=== PATIENT | male | born 1950 | race Caucasian/White ===

== ENCOUNTER 2017-03-04 10:53 | Observation (INO) | payer MEDICARE, BC ==
[~2017-03-04] VITALS: Ht 177.8 cm; Wt 91.7 kg
--- NOTE | ~2017-03-04 | OR ---
PATIENT'S NAME: EHSAN ELI [facility] AGE: 67 Y [address] ROOM: [address] [address] [facility] ADMIT DATE: 03/04/2017 OR/Procedure Report DISCHARGE DATE: FAMILY PHYSICIAN: PHYSICIAN, NO ATTENDING PHYSICIAN: ARCENIO THORNE SURGEON: Arcenio Thorne MD DATE OF PROCEDURE: 03/04/2017 PROCEDURE HYDRO STATION OPERATOR: Demetra Bundy. PROCEDURE NAME: Bronchoscopy with endobronchial ultrasound and fine-needle aspiration of right hilar lymph nodes. INDICATIONS AND PREPROCEDURE DIAGNOSES: 1. Mediastinal adenopathy with multiple nodes in the right hilar area. 2. Squamous cell carcinoma of the oropharynx. 3. Partial upper airway obstruction. POSTPROCEDURE DIAGNOSES: 1. Mediastinal adenopathy with multiple nodes in the right hilar area. 2. Squamous cell carcinoma of the oropharynx. 3. Partial upper airway obstruction. CONSENT: Consent was obtained from the patient after all the indications, risks, benefits, and alternatives were explained at length. DESCRIPTION OF PROCEDURE: I had extensive discussions with the Anesthesia team prior to starting the procedure. The patient had a difficult airway and he was taken to the operating room where he was fiberoptically intubated by Dr. Ellison from the Anesthesia team. Please note that he could not be intubated with a Griffith blade or with the GlideScope. A #8.5 endotracheal tube was eventually placed and I started with the diagnostic bronchoscopy followed by bronchoscopy with endobronchial ultrasound. FINDINGS: The initial bronchoscopy showed a small amount of blood in the distal trachea and right mainstem bronchus with a small clot. This was most likely secondary to the intubation and the bleeding tumor at the base of the tongue. I performed a therapeutic aspiration of secretions and of the blood clots using saline aliquots at times. Afterwards, a careful examination down to the subsegmental level did not reveal any endobronchial lesions, old or new blood clots, or any active bleeding. The diagnostic bronchoscope was removed and the bronchoscope with endobronchial ultrasound was advanced through the endotracheal tube. The patient had 2 small nodes of less than 1.5 cm in diameter next to the right pulmonary artery and a 2.5 cm maximum diameter PATIENT'S NAME: EHSAN ELI [facility] AGE: 67 Y [address] ROOM: [address] [address] LOC[facility]: [facility] ADMIT DATE: 03/04/2017 OR/Procedure Report DISCHARGE DATE: FAMILY PHYSICIAN: PHYSICIAN, NO ATTENDING PHYSICIAN: ARCENIO THORNE lymph node next to the bronchus intermedius on the right side. I performed 5 fine-needle aspirates from each of these lymph nodes with US guidance. There was minimal amount of bleeding that stopped without any further interventions. At the end of the procedure, I repeated the diagnostic bronchoscopy that did not reveal any active bleeding either. The diagnostic bronchoscope was removed and the patient was returned to the Anesthesia team for further management. He was eventually successfully extubated and transferred to PACU. COMPLICATIONS: None related to bronchoscopy and fine-needle aspirates. ESTIMATED BLOOD LOSS: Approximately 10-15 mL related to the intubation and bleeding from the tumor. SPECIMENS: The fine-needle aspirates will be sent for cytology studies. MD SIXTO ARRIAGA/modl /[id number] d: 03/04/17 2325 t: 03/06/17 0934, OPERATIVE SUMMARY
--- NOTE | ~2017-03-04 | HP ---
PATIENT'S NAME: EHSAN ELI [facility] AGE: 67 Y [address] ROOM: [place] [address] LOCATION: [facility] ADMIT DATE: 03/04/2017 History & Physical DISCHARGE DATE: FAMILY PHYSICIAN: PHYSICIAN, NO ATTENDING PHYSICIAN: ARCENIO THORNE DATE OF SERVICE: HISTORY OF PRESENT ILLNESS: This is a 67-year-old male who came in for an outpatient bronchoscopy and EBUS for biopsy and also FNA of hilar adenopathy. The patient has recently been diagnosed with a mass at the base of the tongue, which was diagnosed in February this year. Diagnosis of the mass at the base of the tongue was done when the patient in May of last year had a sore throat which was followed by sticky sensation in his throat, which progressively got worsened in November with a voice change and ultimately a PET scan was done, which showed a mass at the base of the tongue. The patient also had a difficult airway during intubation and so a fiberoptic method had to be adapted during intubation, and the procedure was well tolerated without any intraoperative or postop complication, and the patient was successfully extubated without any complications. However, Dr. Thorne felt the patient should be admitted for observation given his difficult airway as well as some obstruction. Right now, the patient denies any pain except for some soreness in his throat. Denies chest pain. Denies shortness of breath. Denies any fever, abdominal pain, or diarrhea. REVIEW OF SYSTEMS: The 13 elements of review of systems were asked and as documented in the HPI. The others are negative. PAST MEDICAL HISTORY: None. Recent diagnosis of mass at the base of the tongue. SURGICAL HISTORY: None. FAMILY HISTORY: Mother at the age of 92, had dementia. Father at the age of 60, he had multiple medical problems. SOCIAL HISTORY: The patient denies drinking alcohol or smoking. PHYSICAL EXAMINATION: VITAL SIGNS: In PCU, blood pressure 137/77, oxygen saturation 99% on 2 L of PATIENT'S NAME: EHSAN ELI [facility] AGE: 67 Y [address] ROOM: [place] [address] LOCATION: [facility] ADMIT DATE: 03/04/2017 History & Physical DISCHARGE DATE: FAMILY PHYSICIAN: PHYSICIAN, NO ATTENDING PHYSICIAN: ARCENIO THORNE nasal cannula, pulse 74, temperature 97.8, and respiratory rate 16. GENERAL: A pleasant male who is alert, awake, oriented x3, not in any form of respiratory distress or painful distress. NEUROLOGIC: Cranial 2-12 intact bilaterally. Sensory is intact bilaterally. Power is 5/5 in all extremities. HEENT: Normocephalic, atraumatic. Pupils are equal and reactive to light bilaterally. Pharynx is normal. Mucosa is moist. Ears: No obvious ear discharge or drainage. NECK: Supple. No area of tenderness. CARDIOVASCULAR: Normal S1, S2. Regular rate and rhythm. CHEST: Clear to auscultation bilaterally. ABDOMEN: Soft, nondistended. No area of tenderness. No palpable organomegaly. Positive bowel sounds. EXTREMITIES: There is no joint swelling or erythema or tenderness. SKIN: No rash or skin breakdown. ASSESSMENT AND PLAN: 1. Difficult airway for intubation, present on admission. The patient is status post difficult extubation, probably secondary to partial upper airway obstruction from the mass at the base of the tongue. 2. Acute hypoxic respiratory failure from partial airway obstruction. The patient is currently on 2 L of nasal cannula. We will wean him off oxygen. Further management is by Dr. Thorne which includes racemic epinephrine and DuoNeb p.r.n. Plan also if during the night the patient develops any worsening of shortness of breath for Anesthesia to be called and ENT also on standby Dr. Diez, and Dr. Thorne already touched base with him. 3. Mass at the base of the tongue, present on admission. The patient is status post EBUS and bronchoscopy with biopsy of the hilar adenopathy. The line of management was explained to the patient and his son who did not have any questions at this time. MD MARTINA AVENDANO/ramon /[id number] D: [id number] T: [id number] HISTORY & PHYSICAL
--- NOTE | ~2017-03-04 | OR ---
PATIENT'S NAME: EHSAN ELI [facility] AGE: 67 Y [address] ROOM: [address] [address] LOCATION: [facility] ADMIT DATE: 03/04/2017 OR/Procedure Report DISCHARGE DATE: 03/05/2017 FAMILY PHYSICIAN: , MARIA LUISA ATTENDING PHYSICIAN: Chele Fortune SURGEON: Omar Ellison MD MEAT CARRIER: DATE OF PROCEDURE: 03/04/2017 ADDENDUM TO ANESTHESIA RECORD ADDENDUM: The patient is a 67-year-old male who was brought to the operating room to undergo general anesthesia in order to facilitate bronchoscopy with ultrasound- guided lymph node biopsy. The patient had a history of difficult airway secondary to a large supraglottic mass. The patient was slowly induced under general anesthesia using titrated doses of propofol, ketamine, and Versed. Please refer to the anesthesia record for the dosage administration. The patient was successfully induced using IV induction with maintenance of spontaneous ventilation. At that point, sevoflurane was added to the injection in a concentration of 5% to 7%. The patient was assisted with his ventilation for a period of 5 to 10 minutes at which point he was deemed "deep" enough to permit direct laryngoscopy. Using a #2 Griffith blade, the pharynx was visualized, and on further inspection, a large, friable, fungating mass was noted on the left. Identification of the vocal cords was not possible on the first exam. The tissue was noted to be extremely friable with hemorrhage easily occurring on contact with the laryngoscope blade. Several attempts were made with a #2 Griffith blade, but the vocal cords again were not identified. The patient was assisted with his ventilation using bag mask with high concentrations of sevoflurane. The mouth had to be suctioned on several occasions to remove the blood that resulted from the friable tumor tissue. A GlideScope was then introduced into the oropharynx, and again the mass well visualized, but the cords remained obscured. It was at this time that we decided to use a double technique of a GlideScope with a flexible fiberoptic bronchoscope. Using this technique, we were able to identify the vocal cords and were able to enter into the trachea with the bronchoscope. I attempted to thread the endotracheal tube over the bronchoscope and into the trachea, but met resistance and were unable to successfully place the endotracheal tube. Both the tube and the bronchoscope were removed, and assisted ventilation re- established. The ventilation was becoming somewhat more difficult, and at times, we had to use 2-handed mask application with assisted bag ventilation. On the next attempt with the GlideScope/bronchoscope, the cords were identified and the trachea entered. An 8.5 mm endotracheal tube was then, at PATIENT'S NAME: EHSAN ELI [facility] AGE: 67 Y [address] ROOM: [place] [address] LOC[facility]: [facility] ADMIT DATE: 03/04/2017 OR/Procedure Report DISCHARGE DATE: 03/05/2017 FAMILY PHYSICIAN: MARIA LUISA VILLAR ATTENDING PHYSICIAN: Chele Fortune this point, successfully cork-screwed into the trachea to a depth of 23 cm at the lip. The bronchoscope was then removed and the endotracheal tube hooked to the anesthesia circuit with a normal capnography pattern. The patient maintained oxygen saturations in the mid to upper 90s throughout the entire procedure. He did have hemodynamic variability which was somewhat smoothed out with the administration of fentanyl. For other details, please refer to the anesthesia record. MD GHULAM JUNIOR/ramon /[id number] d: 03/05/17 1623 t: 03/08/17 1554, OPERATIVE SUMMARY
--- NOTE | ~2017-03-04 | DS ---
PATIENT'S NAME: EHSAN ELI [facility] AGE: 67 Y [address] ROOM: [address] [address] LOCATION: [facility]U ADMIT DATE: 03/04/2017 Discharge Summary DISCHARGE DATE: 03/05/2017 FAMILY PHYSICIAN: PHYSICIAN, NO ATTENDING PHYSICIAN: Chele Thorne DISCHARGE DIAGNOSES: 1. Partial upper airway obstruction. 2. Squamous cell carcinoma of the oropharynx. 3. Mediastinal adenopathy, status post bronchoscopy with endobronchial ultrasound and fine-needle aspirations. 4. Acute respiratory failure after bronchoscopy. HOSPITAL COURSE: Please see the history and physical dictated by Dr. Ojeda yesterday. Briefly, the patient had a bronchoscopy with endobronchial ultrasound scheduled for yesterday for a newly diagnosed oropharynx cancer and positive mediastinal lymph nodes on recent PET scan. As part of the procedure, the patient had to be intubated. However, he had a partially obstructed upper airway because of his squamous cell carcinoma of the base of the tongue. The intubation was difficult and he had some bleeding associated with it. The procedure itself was uneventful, but after the procedure, the patient also required supplemental oxygen. Because of concern of further airway compromise and because of his acute respiratory failure requiring oxygen, it was decided that the patient stay in the hospital overnight for observation. Eventually, early in the night, his oxygen requirements decreased and he was weaned off of oxygen to room air. There were no other significant events that happened overnight. He received only one racemic epinephrine nebulization immediately post-procedure after extubation. On the morning of 03/05/2017, I examined the patient who reported only mild tenderness in his throat, which was present before. He was on room air without any signs of respiratory distress. He will be discharged home, and I will give him updates over the phone regarding the results of the cytology studies for the fine-needle aspiration that I performed yesterday. The patient verbalized understanding and agreed to the discharge and further plan of care. DISCHARGE MEDICATIONS: None. DISPOSITION: He will be discharged home. CONDITION AT DISCHARGE: Good. CHELE THORNE MD RFN/modl PATIENT'S NAME: EHSAN ELI [facility] AGE: 67 Y [address] ROOM: [address] [address] [facility] ADMIT DATE: 03/04/2017 Discharge Summary DISCHARGE DATE: 03/05/2017 FAMILY PHYSICIAN: MARIA LUISA VILLAR ATTENDING PHYSICIAN: Chele Thorne /[id number] d: 03/05/17 0716 t: 03/06/17 0939, DISCHARGE SUMMARY
--- NOTE | 2017-03-04 19:50 | NUR ---
Significant Event: Alert and oriented X 3. SBP 142. HR 76. O2 at 1 L nasal cannula. Mass at base of tongue. No active bleeding since procedure. Up with SBA. Regular diet. Pleasant and cooperative with caress Follow up: Observation, possible dismissal tomorrow.
--- NOTE | 2017-03-05 04:16 | NUR ---
Significant Event: A/O, VSS, weaned to RA, slept throughout night, no report from patient of trouble breathing/swallowing, minor sore throat but tolerable, independent in room Follow up: home today
--- NOTE | 2017-03-05 11:00 | NUR ---
Introduced myself and role of care management to pt. He is dressed ready to go home. I did give him the BURT and he did sign it and copy given to him, denies any other needs.
[2017-03-30] MEDS ORDERED: PROCHLORPERAZIN10 MG PO (14:57)
[2017-03-30] MEDS ORDERED: DIFLUCAN100 MG PO (14:58)
[2017-03-30] MEDS ORDERED: SF56 GM TOP (15:01)
[2017-03-30] MEDS ORDERED: DECADRON4 MG PO (15:04)
[2017-03-30] MEDS ORDERED: ZYPREXA10 MG PO (15:06)
[2017-04-09] MEDS ORDERED: LORTAB ELIXI15 ML/UD PO (11:35)
[2017-04-09] MEDS ORDERED: AUGMENTIN600 MG/5 M PO (11:36)
== END 2017-03-05 12:50 | disposition disaster alternative care site (69) ==
LOC: GEND 10:53 → GPCU 15:36
PROVIDERS: ADMIT Internal Medicine Critical Care Medicine
PROC: 07974ZX Drainage of Thorax Lymphatic, Percutaneous Endoscopic Approach, Diagnostic (ICD-10-PCS; principal; 2017-03-04)
PROC: 0B938ZX Drainage of Right Main Bronchus, Via Natural or Artificial Opening Endoscopic, Diagnostic (ICD-10-PCS; 2017-03-04)
DX: J98.8 Other specified respiratory disorders (principal); R59.0 Localized enlarged lymph nodes; J96.90 Respiratory failure, unspecified, unspecified whether with hypoxia or hypercapnia; E66.9 Obesity, unspecified; Z68.30 Body mass index [BMI] 30.0-30.9, adult; Z23 Encounter for immunization
CPT/HCPCS: G0009; G0378; J1100; J2405; J7030

== ENCOUNTER 2017-04-08 16:14 | Emergency (ER) | payer MEDICARE, BC ==
--- NOTE | ~2017-04-08 | ER ---
PATIENT'S NAME: EHSAN ELI [facility] AGE: 67 Y [address] ROOM: [place] [address] LOCATION: [facility] ADMIT DATE: 04/08/2017 ER/Outpatient Report DISCHARGE DATE: 04/08/2017 FAMILY PHYSICIAN: PHYSICIAN, NO ATTENDING PHYSICIAN: Yunier Black Time of Arrival: 1614 hours. Time of Evaluation: 1630 hours. CHIEF COMPLAINT: Vomiting blood. HISTORY OF PRESENT ILLNESS: The patient is a 67-year-old male, who presents to the emergency department today with a chief complaint of vomiting blood. The patient does have a history of orolaryngeal cancer at the posterior aspect of his tongue. He is undergoing chemotherapy and radiation. He reports he had episodes of vomiting earlier today and then had 1 episode of vomiting today with small amount of blood noted. He did have a fever prior which he was started on amoxicillin for. Denies any diarrhea or constipation. No back pain. No diarrhea. No chest pain. No shortness of breath. He has chronic pain in the back of his throat. PAST MEDICAL HISTORY: Mass at the base of the tongue. PAST SURGICAL HISTORY: Abdomen at 4 years old. SOCIAL HISTORY: The patient denies any tobacco, alcohol, or illicit drug use. ALLERGIES: NO KNOWN DRUG ALLERGIES. MEDICATIONS: Please see list. PRIMARY CARE DOCTOR: No local physician. REVIEW OF SYSTEMS: All systems are reviewed by myself and negative with the exception of those discussed in HPI and past medical history. PATIENT'S NAME: EHSAN ELI [facility] AGE: 67 Y [address] ROOM: [place] [address] LOCATION: [facility] ADMIT DATE: 04/08/2017 ER/Outpatient Report DISCHARGE DATE: 04/08/2017 FAMILY PHYSICIAN: PHYSICIAN, NO ATTENDING PHYSICIAN: Yunier Black PHYSICAL EXAMINATION: VITAL SIGNS: Weight 95 kg. Blood pressure 113/73, pulse 63, respiratory rate 20, temperature 97.3, oxygen saturation 96% on room air. GENERAL: The patient is a 67-year-old male, who appears his stated age, in no acute distress. HEENT: Head: Normocephalic, atraumatic. Pupils are equal, round, and reactive to light. Oropharynx is clear. NECK: Supple. There is no nuchal rigidity. CARDIOVASCULAR: Regular rate and rhythm. No murmurs, rubs, or gallops. LUNGS: Clear to auscultation bilaterally. No wheezes, rales, or rhonchi. ABDOMEN: Soft, nontender, and nondistended. No rebound, rigidity, or guarding. MUSCULOSKELETAL: The patient moves all 4 extremities. SKIN: Warm and dry. No rashes or lesions noted. LABORATORY DATA AND X-RAYS: Labs and x-rays are obtained. CBC: White blood cell count 1.2, ANC of 700, hemoglobin 9.7, hematocrit 28.9. Lactate is normal. CMP is unremarkable. LFTs are normal. Cardiac enzymes are normal. PTT is 36. INR is normal. Procalcitonin is less than 0.05. Chest x-ray shows no acute process as interpreted by myself. IMPRESSION: 1. Hematemesis. 2. Squamous cell carcinoma of the oropharynx. 3. Initial visit. EMERGENCY DEPARTMENT COURSE: The patient brought back to the examination room. Seen and evaluated by myself. IV was established. Laboratory analysis and imaging are obtained as described above. Workup is obtained. The patient is given 4 mg of Zofran IV. He does have 1 more episode of vomiting here in the emergency department. There was no blood noted in that. Old records are reviewed. The patient did have friable tissue back there along his mass previously. I have discussed with him certainly a friable tissue could be a cause of the blood. It was a small amount. He has vomited since and has not had any blood. I have discussed observation in the hospital for further evaluation of this and to make sure he does not have any complications throughout the night. The patient does wish to go home at this time. He certainly understands that the vomiting of blood could get worse. It could even potentially be life- threatening potentially. The patient's son is at the bedside. They are both understanding. Their questions were answered. They are without further PATIENT'S NAME: EHSAN ELI [facility] AGE: 67 Y [address] ROOM: [place], [place] [address] LOCATION: [facility] ADMIT DATE: 04/08/2017 ER/Outpatient Report DISCHARGE DATE: 04/08/2017 FAMILY PHYSICIAN: PHYSICIAN, NO ATTENDING PHYSICIAN: Yunier Black questions. I have discussed return to care instructions including worsening symptoms or any other concerns, return to the emergency department as soon as possible. The patient does get fluids every time he gets chemo and radiation. He is to follow up with his cement side laster oncologist in 1-2 days as scheduled. I did write a prescription for Zofran 4 mg ODT. DISPOSITION: The patient was discharged home in good condition. DO ANKIT MCKEON/sadel /[id number] d: 04/09/1735 t: 04/14/17 0914, OUTPATIENT REPORT
[~2017-04-08 16:14] MED LIST: DECADRON4 MG PO; DIFLUCAN100 MG PO; PROCHLORPERAZIN10 MG PO; SF56 GM TOP; ZYPREXA10 MG PO
[2017-04-08 17:10] LABS: HEMATOCRIT 28.9 % (37.0-53.0); HEMOGLOBIN 9.7 g/dL (11.0-16.0); MCH 29.4 pg (27.0-34.0); MCHC 33.6 gm/dL (32.0-36.5); MCV 87.6 fl (83.0-98.0); MPV 8.6 fl (9.4-12.4); PLATELET COUNT 241 K/uL (150-450); RDW-CV 12.6 % (11.9-14.6)
[2017-04-08 17:14] LABS: WBC 1.2 K/uL (4.0-11.0)
[2017-04-08 17:21] LABS: INR - (THERAPEUTIC) 1.05 (0.92-1.07); PTT 36 SECONDS (25-32)
[2017-04-08 17:37] LABS: ALBUMIN 3.1 gm/dL (3.5-5.0); ALK PHOS 76 IU/L (33-138); ALT 11 IU/L (12-78); ANION GAP 15.2 (10.0-19.0); AST 18 IU/L (10-40); BLOOD UREA NITROGEN 12 mg/dL (6-24); CALCIUM 8.1 mg/dL (8.5-10.5); CHLORIDE 103 mMol/L (96-110); CO2 23 mMol/L (22-32); CPK 52 IU/L (35-332); CREATININE 0.7 mg/dL (0.6-1.3); ESTIMATED GFR (MDRD EQUATION) > 60; POTASSIUM 4.2 mMol/L (3.7-5.1); SODIUM 137 mMol/L (135-145); TOTAL BILIRUBIN 0.3 mg/dL (0.0-1.5); TOTAL PROTEIN 6.4 g/dL (6.0-8.4)
[2017-04-08 18:02] LABS: ABSOLUTE NEUTROPHIL CT (ANC) 0.7 K/uL (1.4-9.0); BANDED NEUTROPHIL # 0.1 K/uL (0.0-0.1); BANDED NEUTROPHILS % 9 %; LYMPHOCYTE # 0.2 K/uL (0.8-4.0); LYMPHOCYTE % 17 %; MONOCYTE # 0.2 K/uL (0.0-1.0); SEGMENTED NEUTROPHIL # 0.6 K/uL (1.4-9.0); SEGMENTED NEUTROPHIL % 53 %
[2017-04-09] MEDS ORDERED: LORTAB ELIXI15 ML/UD PO (11:35)
[2017-04-09] MEDS ORDERED: AUGMENTIN600 MG/5 M PO (11:36)
== END 2017-04-08 18:20 | disposition disaster alternative care site (69) ==
LOC: GMED 16:14
PROVIDERS: Emergency Medicine
DX: K92.0 Hematemesis (principal); D00.08 Carcinoma in situ of pharynx
CPT/HCPCS: J2405

== ENCOUNTER → 2017-04-09 | Day surgery (SDC) | payer MEDICARE, BC ==
[~2017-04-09] MED LIST changes: +AUGMENTIN600 MG/5 M PO; +DURAGESIC 25MC25 MCG TOP; +LORTAB ELIXI15 ML/UD PO; +MAG119MX PO; +MOTRIN/ADV100 MG/5 M PO; +TYLENOL LI325 MG/10. PO; +ZOFRAN ODT 4 MG4 MG SL
== END | disposition disaster alternative care site (69) ==
LOC: GPOC 10:00 → GSDC 14:01 → EDSTATUS 04-10 10:00 → GSDC 04-10 10:00
DX: K92.0 Hematemesis (principal); Z85.21 Personal history of malignant neoplasm of larynx
CPT/HCPCS: C1713; C1729; C1769; C1887; J1100; J2405; J2765; J7030

== ENCOUNTER 2017-04-12 19:25 | Inpatient (IN) | payer MEDICARE, BC ==
[~2017-04-12] VITALS: Ht 177.8 cm; Wt 87.6 kg
--- NOTE | ~2017-04-12 | ER ---
PATIENT'S NAME: EHSAN ELI [facility] AGE: 67 Y [address] ROOM: [place] [address] [place] [facility] [place] DATE: 04/12/2017 ER/Outpatient Report DISCHARGE DATE: FAMILY PHYSICIAN: PHYSICIAN, NO ATTENDING PHYSICIAN: GABRIELA CHIN Time of Arrival: 1925 hours. Time of Evaluation: 1930 hours. IDENTIFICATION: A 67-year-old male. CHIEF COMPLAINT: Nausea and vomiting. HISTORY OF PRESENT ILLNESS: The patient is a 67-year-old male, diagnosed with a mass at the base of his tongue in February of this year. 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 Next chemotherapy visit is for next Thursday. He had a PEG tube placed on . He has continued to have worsening nausea, vomiting. He has only had 300 calories in since Thursday according to his son. The patient is not having any pain at this time. ALLERGIES: NO KNOWN DRUG ALLERGIES. CURRENT MEDICATIONS: 1. Lortab. 2. Tylenol. 3. Motrin. 4. Zofran. MEDICAL PROBLEMS: Moderately-differentiated squamous cell carcinoma of oropharynx. PRIOR SURGERIES: Intussusception of the intestines in 1953, laryngoscopy with biopsy on February 18, 2017, bronchoscopy with fine-needle aspirate in February 2017. SOCIAL HISTORY: The patient is . 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 He was living in [place], [place]. Occasional alcohol use in the past, none currently. Tobacco use, denies. PATIENT'S NAME: EHSAN ELI [facility] AGE: 67 Y [address] ROOM: [place] [id number] [place] [facility] [place] DATE: 04/12/2017 ER/Outpatient Report DISCHARGE DATE: FAMILY PHYSICIAN: PHYSICIAN, MARIA LUISA ATTENDING PHYSICIAN: GABRIELA CHIN FAMILY HISTORY: Father at age 60 from pancreatic cancer. Mother at age 92 from dementia. REVIEW OF SYSTEMS: The patient denies any fever or chills. Pain is controlled. He does have trouble speaking. No cough. No shortness of breath. No abdominal pain. He has nausea, vomiting, constipation. Last bowel movement was on Thursday. No diarrhea. No numbness or tingling. All other systems reviewed and negative. PHYSICAL EXAMINATION: VITAL SIGNS: Height 5 feet 10 inches, weight 91.9 kg, blood pressure 168/95, pulse 70, respirations 18, temperature 98.2, and saturations 96% on room air. GENERAL: A 67-year-old male, in mild distress. HEENT: Head: Normocephalic, atraumatic. Ears: TMs not visualized. Eyes: Pupils equal and reactive to light and accommodation. Extraocular movements intact. Nose: Mucosa pink. No lesions. Mouth: Mucous membranes are dry. Pharynx benign. NECK: Supple with palpable lymph nodes. LUNGS: Clear to auscultation. No rhonchi, wheezes, or rales. HEART: Regular rate and rhythm. No murmur, rub, or gallop. ABDOMEN: Bowel sounds present. Soft. Nondistended. Minimally tender to deep palpation. No rebound or guarding. PEG tube in place. EXTREMITIES: No edema. NEURO: The patient is alert and oriented x4. Cranial nerves 2 through 12 grossly intact. Motor strength 5/5 throughout. Sensation is intact to light touch. No lower extremity edema. LABORATORY DATA AND X-RAYS: Sodium 138; potassium 3.2, which is down from 4.2 on April 08; chloride 101; CO2 of 29; BUN 12; creatinine 0.7; blood sugar 93. Albumin 2.7, which is down from 3.1 on April 08. Liver enzymes normal. Amylase and lipase are normal. Hemoglobin 9.9, which is stable; hematocrit 29.6; platelets 271; white count 1.5, which is up from 1.2 on April 08; absolute neutrophil count is 1.0; 53% segs; 16% bands. IMPRESSION: 1. Intractable nausea and vomiting. 2. Squamous cell carcinoma of the oropharynx, undergoing radiation and chemotherapy. 3. Leukopenia, probably secondary to chemotherapy, absolute neutrophil count is 1000. 4. Hypokalemia. 5. Poor nutritional status with low albumin and poor p.o. intake with PATIENT'S NAME: EHSAN ELI [facility] AGE: 67 Y [address] ROOM: [place] [address] [place] [facility] [facility] [place] DATE: 04/12/2017 ER/Outpatient Report DISCHARGE DATE: FAMILY PHYSICIAN: MARIA LUISA VILLAR ATTENDING PHYSICIAN: GABRIELA CHIN persistent nausea and vomiting. PLAN: An IV was initiated here. Normal saline at 150 mL/h. Zofran for nausea. The patient will be admitted per hospitalist service, Dr. Chin, for observation. Family understands and agrees, and all questions have been answered. MD LINETTE SCHWARTZ/sadel /[id number] d: 04/13/17 0320 t: 04/13/17 0404, OUTPATIENT REPORT
--- NOTE | ~2017-04-12 | HP ---
PATIENT'S NAME: EHSAN ELI [facility] AGE: 67 Y [address] ROOM: [place] [address] [place] [facility] [place]: 04/12/2017 History & Physical DISCHARGE DATE: FAMILY PHYSICIAN: PHYSICIAN, MARIA LUISA ATTENDING PHYSICIAN: GABRIELA CHIN DATE OF SERVICE: CHIEF COMPLAINT: Nausea and vomiting. 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 The patient's last chemotherapy was March 30, 2017, and the next one will be on Thursday, April 15, 2017, and the patient's next radiation is due on Thursday, which is April 14, 2017. The story is that the patient also had a PEG tube placement for tube feeding every 3 hours at home. The patient says that 4 days after he had the first chemotherapy on March 30, 2017, the patient has been feeling nauseous and has been unable to tolerate anything orally. He has vomited a few times, but he denies any abdominal pain. He still passes flatus. He is constipated. Last bowel movement was a few days ago, but he says that he also has been unable to eat anything due to nausea and vomiting. Because of the worsening nausea and vomiting every time he tried to eat, the patient came here for evaluation. No fever, no chills, no shortness of breath, no chest pain, no palpitation, no cough, no abdominal pain. REVIEW OF SYSTEMS: As mentioned in the history of present illness. All other systems were reviewed and were negative except those mentioned in the history of present illness. PAST MEDICAL HISTORY: 1. Squamous cell carcinoma of the oropharynx diagnosed in January 2017, followed by Dr. Lam and currently on chemotherapy and also on radiation. 2. Status post PEG tube placement that was done on March, and he is getting tube feeding formula every 3 hours at home. ALLERGIES: NO KNOWN DRUG ALLERGIES ACCORDING TO THE PATIENT. PATIENT'S NAME: EHSAN ELI [facility] AGE: 67 Y [address] ROOM: [place] [address] [place] [facility] [place]: 04/12/2017 History & Physical DISCHARGE DATE: FAMILY PHYSICIAN: PHYSICIAN, MARIA LUISA ATTENDING PHYSICIAN: GABRIELA CHIN [place] MEDICATIONS: Will be reconciled in the morning when the list is ready. SOCIAL HISTORY: The patient denies any alcohol, illegal drug, or cigarette use. PAST SURGICAL HISTORY: None. FAMILY HISTORY: Father from pancreatic cancer. Mother from old age from a cause that he could not remember. PHYSICAL EXAMINATION: VITAL SIGNS: At the time of my dictation, temperature 97, heart rate 75, respirations 12, blood pressure 153/93, saturation 95% on room air. GENERAL APPEARANCE: Alert and oriented x3, in no acute distress. HEENT: Pupils are equally round and reactive to light. Extraocular muscles intact. Anicteric sclerae. Nasal turbinates are normal bilaterally. Moist oral mucosa. NECK: No JVD. In the oral cavity, he does have some stomatitis around his tongue. CARDIOVASCULAR: Regular rate and rhythm. Normal S1, S2. No murmur, no rubs, no gallops. RESPIRATORY: Clear to auscultation. Chest wall nontender to palpation. ABDOMEN: Soft, nontender, PEG tube in place. Nondistended, nontender. Bowel sounds are present. No mass. EXTREMITIES: No edema in upper or lower extremities. NEUROLOGICAL: Grossly nonfocal. SKIN: No ulcer, no rash, no cyanosis. MUSCULOSKELETAL: No joint pain and no muscle pain. Range of motion intact. LABORATORY DATA: White blood cells 1.5, hemoglobin 9.9, hematocrit 29.6, platelets 271. Glucose 93, BUN 12, creatinine 0.7. Sodium 138, potassium 3.2, chloride 101, CO2 29, calcium 8.6. Total protein 6.8, albumin 2.7, AST 15, ALT 13, alkaline phosphatase 66, total bilirubin 0.3, GFR more than 60. Anion gap 11.2. Procalcitonin pending. Amylase 41, lipase 112. Absolute neutrophil count 1.0. IMAGING STUDY: None. ASSESSMENT AND PLAN: 1. Regarding his intractable nausea and vomiting: Probably secondary to PATIENT'S NAME: EHSAN ELI [facility] AGE: 67 Y [address] ROOM: [place] [address] [place] [facility] [place]: 04/12/2017 History & Physical DISCHARGE DATE: FAMILY PHYSICIAN: PHYSICIAN, NO ATTENDING PHYSICIAN: GABRIELA CHIN chemotherapy side effect since his nausea and vomiting happened 4 days after the chemotherapy was started for the first time. However, I want to rule out a small bowel obstruction. I will get a KUB. Putting n.p.o. given that the patient is feeling nauseous right now. If KUB rule out small bowel obstruction, the patient could advance diet as tolerated. I will use IV Zofran p.r.n. for nausea and vomiting. I will also consult Hematology/Oncology to see if the chemotherapy agent could be the cause of the nausea and vomiting. The patient does not remember which chemotherapy agent patient was using. Please also consider consulting Dr. Coe for his radiation if it is appropriate to have the radiation on Friday, April 14, 2017, which is his next appointment. Followup plan will depend on clinical course. I will also consult Nutrition to assess the frequency and the type of the feeding formula, but has to rule out a small bowel obstruction with a KUB first. Further plan will depend be clinical course. While n.p.o., he will be getting IV fluids for hydration. 2. Regarding his hypokalemia: We will replace IV fluids that he is getting right now. 3. Regarding his squamous cell carcinoma of the oropharynx: We will consult Hematology/Oncology as mentioned before. 4. Regarding his deep vein thrombosis prophylaxis: He will be getting Lovenox subcutaneous once daily. 5. Code status: FULL CODE. Time spent on the day of admission is 35 minutes in care. Half of the time was spent in chart review, physical examination, and the medical history. The other half of the total time spent was in counseling including addressing all the questions and the concerns that the patient had and going over the plan of care with the patient and the nurse. Further plan will depend on clinical course. GABRIELA CHIN MD CC/ramon /[id number] D: 451 T: 710 HISTORY & PHYSICAL
--- NOTE | ~2017-04-12 | DS ---
PATIENT'S NAME: EHSAN ELI [facility] AGE: 67 Y [address] ROOM: [address] [address] [place] [facility] [place] DATE: 04/15/2017 Discharge Summary DISCHARGE DATE: 04/27/2017 FAMILY PHYSICIAN: MARIA LUISA VILLAR ATTENDING PHYSICIAN: Rio Godoy PRINCIPAL DIAGNOSES: 1. Intractable nausea and vomiting secondary to ileus. 2. Neutropenia. 3. Stomatitis/mucositis. 4. Dysphagia secondary to squamous cell carcinoma of the oropharynx and base of the tongue, status post PEG tube. 5. Squamous cell carcinoma of the oropharynx, stage IV. 6. Constipation, narcotic induced. 7. Protein-calorie malnutrition. 8. Fever, unknown origin. 9. Hypokalemia. 10. Hypomagnesemia. HOSPITAL COURSE: Please reference any of the admitting data to the history and physical as dictated by Dr. Godoy upon admission. Briefly, a 67-year-old male with a history of squamous cell carcinoma of the oropharynx, undergoing radiation and chemotherapy. He had a PEG tube placed on 04/09/2017, and was started on supplemental tube feedings. He began having intractable nausea and vomiting, and was admitted to the hospital for further evaluation and management. He was made n.p.o. and given supportive cares. A KUB of his abdomen did not show any small bowel obstruction and probable ileus. Tube placement was proper. We continued symptomatic support, and asked for consultation with Oncology, feeling that there may be some relationship of the nausea and vomiting to his chemotherapy. They started Reglan t.i.d. before meals and gave steroids x1. He also received some supplemental antiemetics as well. He had a Nutrition consult for tube feed recommendations. Initially started on smaller and more frequent bolus feedings, which he did have difficulty tolerating. On 04/21/2017, he was changed to a lower continuous tube feeds rate. He started to tolerate this better, and he did have some bowel movements. By 04/23/2017, new recommendations were made for a slow transition to bolus feedings. This was initiated on 04/24/2017. The patient tolerated this well. His bowels started to move, and he was able to consume oral intake with very limited nausea and vomiting and no p.r.n. antiemetics. Because of his poor oral intake, the patient did require electrolyte supplementation throughout his stay. Serial monitoring of his electrolytes were obtained. Appropriate replacement was completed and optimized by day of PATIENT'S NAME: EHSAN ELI [facility] AGE: 67 Y [address] ROOM: [id number] [place], [place] [address] LOCATION: [facility] [place] ADMIT DATE: 04/15/2017 Discharge Summary DISCHARGE DATE: 04/27/2017 FAMILY PHYSICIAN: , MARIA LUISA ATTENDING PHYSICIAN: Rio Godoy discharge. The remaining of his chemotherapy and radiation were managed by the Oncology team, which he tolerated well. The patient did have some low-grade fevers as well during his stay. Chest workup was essentially negative. We will continue close observation as an outpatient. CONDITION UPON DISCHARGE: Stable and fair. CONSULTING PROVIDERS: Holger Irving MD and Aries Louie MD of Oncology. LABORATORY RESULTS: Initial white blood cell count was 1.5 with fluctuation during his stay between 1.5 and 4.9; hemoglobin stayed relatively stable between 9 and 10, most recent being 9.3; hematocrit of 27.7; and a platelet count of 121. Chemistry panel most recently showed a glucose of 94, BUN of 21, creatinine of 0.7, sodium of 137, potassium ranging as low as 2.7 to 4.1 and most recent being 3.6, chloride of 102, CO2 of 28, calcium of 8.2, albumin of 2.4, phosphorus of 3.1, and GFR was greater than 60. Liver functions were essentially unremarkable. INR is 1.12. Urinalysis showed a yellow, 2+ turbid urine with specific gravity of 1.015, pH of 7.0, leukocytes negative, nitrites negative, protein negative, glucose negative, ketones 5, urobilinogen 1, bilirubin negative, blood negative, white blood cells of 0 to 2, red blood cells of 0 to 2, epithelial of 0 to 2, bacteria few, and amorphous material was 3+. Micro analysis of the urine showed contaminants. Procalcitonin level is negative. Pre-albumin was 12.0. Amylase and lipase were 41 and 112 respectively. Microbiology: Blood cultures, no growth to date. RADIOLOGIC IMAGING: Chest x-ray on April 24 was normal. A KUB of the abdomen on 04/13/2017 showed mild ileus with moderate prominent stool and proper positioning of gastrostomy tube. DISCHARGE MEDICATIONS: 1. Acetaminophen/hydrocodone 15 mL p.o. or per PEG tube every three hours as needed. 2. Acetaminophen 300 mg suspension every three hours by mouth or by PEG tube as needed. PATIENT'S NAME: EHSAN ELI [facility] AGE: 67 Y [address] ROOM: [place] [address] LOC[place]: [facility] [place] DATE: 04/15/2017 Discharge Summary DISCHARGE DATE: 04/27/2017 FAMILY PHYSICIAN: PHYSICIAN, NO ATTENDING PHYSICIAN: Rio Godoy 3. Ibuprofen suspension 300 mg p.o. or by PEG tube every three hours as needed. 4. Zofran 4 mg sublingual every four to six hours as needed. 5. Fentanyl patch 50 mcg transdermally every 72 hours. 6. Diphenhydramine/lidocaine/aluminum mouthwash 5 mL to 10 mL orally every four hours as needed for pain. DISCHARGE INSTRUCTIONS: The patient will be discharged to home with diet recommendations for TwoCal HN 5 cans a day with 75 mL flushes before and after. Activity is to be without any restriction. He will need to follow up with Dr. Lam next Thursday on May 05, 2017. Dr. Crowder spoke with Dr. Lam directly about the patient's hospitalization. CBC obtained at the time of discharge is pending, and it will be faxed to her office. The above line of management was discussed with the patient and his son, who stated complete understanding. All questions were answered with statements of satisfaction. Total time arranging was greater than 30 minutes. Thank you for allowing us to participate in the care of this patient while at [facility]. CADY CHAMPAGNE APRN, APRN FOR MD TUTU CASTANO/ramon /[id number] CC: Nguyen Lam MD d: t: 04/28/17 1012, DISCHARGE SUMMARY
--- NOTE | ~2017-04-12 | CON ---
PATIENT'S NAME: REMI BRITT [facility] AGE: 67 Y [address] ROOM: [id number] [place], [place] [address] [place] [facility] [place] DATE: 04/12/2017 Consultation DISCHARGE DATE: FAMILY PHYSICIAN: PHYSICIAN, NO ATTENDING PHYSICIAN: GABRIELA CHIN REFERRING PHYSICIAN: Holger Irving MD CHIEF COMPLAINT: Asked to evaluate the patient with nausea and vomiting and head and neck cancer. HISTORY OF PRESENT ILLNESS: Remi Britt is a 67-year-old gentleman who had a diagnosis of stage MARTHA base of tongue tumor, moderately differentiated, grade 2 squamous cell carcinoma. He was initiated on concurrent chemotherapy and radiation with cisplatin 100 mg/m2 given on March 23, 2016, with concurrent radiation therapy. He reported he did pretty well for about a week but after one week started having nausea and vomiting, and this has continued slowly getting worse particularly over the last several days. As he has had trouble maintaining nutrition, I did have a PEG tube placed 3 days ago about that time to continue with ongoing and worsening nausea, vomiting, and increased gagging; unable to tolerate virtually any nutritional supplementation through the PEG tube. Because of this, he was admitted on 04/12/2017, for further evaluation and treatment. He was started on IV fluids and IV nausea medication. continues with the plan and nausea and difficulty tolerating anything. He has had increased pain and using hydrocodone at home but this has been inadequate. Using morphine here in the hospital seemed to be tolerable for him. He is scheduled for consideration of day 22 of cisplatin on Thursday. The patient does report that he did have a fever several days ago and tried taking amoxicillin for this, taken two doses, but with increasing nausea and vomiting, they gave up on this and fevers have not been a recurring issue. In review of laboratory, his white blood cell count today is down to 1.5 from 2.2 last week. His ANC is 1000. He does have a left shift today with 16% bands noted. REVIEW OF SYSTEMS: Per HPI, otherwise, unremarkable or negative in detail. PAST MEDICAL HISTORY: He has a squamous cell carcinoma of the oropharynx diagnosed in January initiated on concurrent chemotherapy and radiation on March 23, 2017. He is status post PEG tube placement on April 09. ALLERGIES: NO KNOWN MEDICAL ALLERGIES. PATIENT'S NAME: REMI BRITT [facility] AGE: 67 Y [address] ROOM: [id number] [place], [place] [address] [place]: [facility] [place] DATE: 04/12/2017 Consultation DISCHARGE DATE: FAMILY PHYSICIAN: PHYSICIAN, NO ATTENDING PHYSICIAN: GABRIELA CHIN SOCIAL HISTORY: The patient does not drink, does not use illicit drugs, and does not use cigarettes. FAMILY HISTORY: The patient's father had pancreatic cancer. Mother passed from old age. PHYSICAL EXAMINATION: VITAL SIGNS: Blood pressure 145/83, pulse 72, respirations 16, and temperature 98.5 degrees. GENERAL: The patient appears comfortable, in no apparent distress. Clearing his throat and using a napkin to clear secretions every once in a while. His son and daughter are present. HEENT: Pupils are equal, round, reactive to light. Extraocular muscles are intact. Oral mucosa is moist. There is blanching mucositis particularly at the soft palate, but no signs of thrush or infections and no mucosal breakdown noted. HEART: Regular rate and rhythm without murmurs, rubs, or gallops. LUNGS: Clear to auscultation without wheezing, without rhonchi. ABDOMEN: Bowel sounds positive. Nontender. EXTREMITIES: Without cyanosis or clubbing. There is very little trace edema of bilateral lower extremities. LABORATORY DATA: Includes CBC with a white blood cell count of 1.5, hemoglobin 9.9, and platelets 271. His ANC was 1000 and he did have a left shift with bandemia of 16%. His electrolytes were notable for a potassium of 3.2. His bicarb 29, and BUN and creatinine of 12 and 0.7 respectively and his liver function tests were unremarkable. IMAGING DATA: Included abdominal x-rays today which demonstrated mild ileus, no obstructive symptoms, and no significant bowel gas. He did have moderate prominent stool in the rectum. IMPRESSION AND PLAN: Remi Britt is a 67-year-old gentleman with diagnosis of oropharyngeal carcinoma, stage MARTHA, initiated on concurrent cisplatin and radiation on March 23, 2017, struggling with nausea and vomiting since some of which is attributable to his increased thickness of oral secretions from the radiation therapy causing gag reflex. Additionally, he does have findings suggestive of a mild ileus. I will add Reglan to his regimen which should help with motility and stool regimen as he is requiring increased pain medications because of the mucositis which is as expected. Additionally, I will add a fentanyl patch at home to help maintain adequate pain relief and use either PATIENT'S NAME: REMI BRITT [facility] AGE: 67 Y [address] ROOM: [place] [address] [place]: [facility] [place] DATE: 04/12/2017 Consultation DISCHARGE DATE: FAMILY PHYSICIAN: PHYSICIAN, MARIA LUISA ATTENDING PHYSICIAN: GABRIELA CHIN hydrocodone or consider morphine as an outpatient once pain is better controlled and the symptoms have resolved. Additionally, I will add dexamethasone to help with the nausea, help with appetite, and to help with resolution of the ileus that may be present. As sometimes gastritis may contribute some nausea, we will add Protonix to his regimen in case that is contributing, and as the patient is noted to have decreasing white blood cell count 3 weeks following his cisplatin and developing a left shift with bandemia of 16%, I will look for infectious etiologies including a line infection and urine infection and initiate Levaquin with a suspicion that infection may be contributing to his overall symptoms as well. We will follow along and make recommendations as they become available. MD AVIS COLON/ramon /[id number] d: 04/13/17 1628 t: 04/18/17 1109, CONSULTATION REPORT
[~2017-04-12 19:25] MED LIST changes: -DURAGESIC 25MC25 MCG TOP; -MAG119MX PO; -MOTRIN/ADV100 MG/5 M PO; -TYLENOL LI325 MG/10. PO; -ZOFRAN ODT 4 MG4 MG SL
[2017-04-12 20:17] LABS: HEMATOCRIT 29.6 % (37.0-53.0); HEMOGLOBIN 9.9 g/dL (11.0-16.0); MCH 29.4 pg (27.0-34.0); MCHC 33.4 gm/dL (32.0-36.5); MCV 87.8 fl (83.0-98.0); MPV 8.5 fl (9.4-12.4); PLATELET COUNT 271 K/uL (150-450); RBC 3.37 M/uL (3.50-5.50); RDW-CV 12.6 % (11.9-14.6)
[2017-04-12 20:20] LABS: WBC 1.5 K/uL (4.0-11.0)
[2017-04-12 20:35] LABS: ALBUMIN 2.7 gm/dL (3.5-5.0); ALK PHOS 66 IU/L (33-138); ALT 13 IU/L (12-78); ANION GAP 11.2 (10.0-19.0); AST 15 IU/L (10-40); BLOOD UREA NITROGEN 12 mg/dL (6-24); CALCIUM 8.6 mg/dL (8.5-10.5); CHLORIDE 101 mMol/L (96-110); CO2 29 mMol/L (22-32); CREATININE 0.7 mg/dL (0.6-1.3); ESTIMATED GFR (MDRD EQUATION) > 60; POTASSIUM 3.2 mMol/L (3.7-5.1); SODIUM 138 mMol/L (135-145); TOTAL BILIRUBIN 0.3 mg/dL (0.0-1.5); TOTAL PROTEIN 6.8 g/dL (6.0-8.4)
[2017-04-12 20:58] LABS: BANDED NEUTROPHIL # 0.2 K/uL (0.0-0.1); BANDED NEUTROPHILS % 16 %; LYMPHOCYTE # 0.1 K/uL (0.8-4.0); LYMPHOCYTE % 7 %; MONOCYTE # 0.3 K/uL (0.0-1.0); SEGMENTED NEUTROPHIL # 0.8 K/uL (1.4-9.0); SEGMENTED NEUTROPHIL % 53 %
[2017-04-12] MEDS ORDERED: TYLENOL LI325 MG/10. PO (23:24)
[2017-04-12] MEDS ORDERED: MOTRIN/ADV100 MG/5 M PO (23:24)
[2017-04-12] MEDS ORDERED: ZOFRAN ODT 4 MG4 MG SL (23:27)
[2017-04-13 04:56] LABS: INR - (THERAPEUTIC) 1.12 (0.92-1.07); PROTIME 11.8 SECONDS (9.8-11.4)
[2017-04-13 05:09] LABS: ALBUMIN 2.5 gm/dL (3.5-5.0); ALK PHOS 70 IU/L (33-138); ALT 12 IU/L (12-78); TOTAL PROTEIN 6.4 g/dL (6.0-8.4)
[2017-04-13 05:12] LABS: TOTAL BILIRUBIN 0.4 mg/dL (0.0-1.5)
[2017-04-13 05:15] LABS: AST 18 IU/L (10-40)
[2017-04-13 13:01] LABS: ANION GAP 13.4 (10.0-19.0); BLOOD UREA NITROGEN 7 mg/dL (6-24); CALCIUM 8.7 mg/dL (8.5-10.5); CHLORIDE 101 mMol/L (96-110); CO2 27 mMol/L (22-32); CREATININE 0.7 mg/dL (0.6-1.3); ESTIMATED GFR (MDRD EQUATION) > 60; POTASSIUM 3.4 mMol/L (3.7-5.1); SODIUM 138 mMol/L (135-145)
[2017-04-13 16:13] LABS: BILIRUBIN URINE NEGATIVE (NEGATIVE); BLOOD URINE NEGATIVE /UL (NEGATIVE); COLOR URINE YELLOW (YELLOW); GLUCOSE URINE NEGATIVE (NEGATIVE); KETONE URINE 5 mg/dL (NEGATIVE); LEUKOCYTES URINE NEGATIVE /UL (NEGATIVE); NITRITE URINE NEGATIVE (NEGATIVE); PROTEIN URINE NEGATIVE (NEGATIVE); SPEC GRAVITY URINE 1.015 (1.003-1.035); TURBIDITY URINE 2+ (CLEAR); UROBILINOGEN URINE 1 mg/dL (NORMAL)
[2017-04-13 16:23] LABS: AMORPHOUS URINE 3+ (NEGATIVE); BACTERIA URINE FEW (NEGATIVE); EPITHELIAL URINE 0-2 #/HPF (NEGATIVE); RBC URINE 0-2 #/HPF (NEGATIVE); WBC URINE 0-2 #/HPF (NEGATIVE)
[2017-04-15 06:14] LABS: ALBUMIN 2.4 gm/dL (3.5-5.0); ANION GAP 8.9 (10.0-19.0); BLOOD UREA NITROGEN 11 mg/dL (6-24); CALCIUM 8.3 mg/dL (8.5-10.5); CHLORIDE 105 mMol/L (96-110); CO2 28 mMol/L (22-32); CREATININE 0.8 mg/dL (0.6-1.3); ESTIMATED GFR (MDRD EQUATION) > 60; MAGNESIUM 1.7 mg/dL (1.8-2.6); POTASSIUM 3.9 mMol/L (3.7-5.1); SODIUM 138 mMol/L (135-145)
[2017-04-15 06:15] LABS: PHOSPHORUS 1.9 mg/dL (2.5-4.9)
[2017-04-15 06:24] LABS: HEMATOCRIT 27.7 % (37.0-53.0); HEMOGLOBIN 9.3 g/dL (11.0-16.0); MCH 29.5 pg (27.0-34.0); MCHC 33.6 gm/dL (32.0-36.5); MCV 87.9 fl (83.0-98.0); MPV 8.7 fl (9.4-12.4); PLATELET COUNT 290 K/uL (150-450); RBC 3.15 M/uL (3.50-5.50); RDW-CV 12.8 % (11.9-14.6); WBC 2.1 K/uL (4.0-11.0)
[2017-04-15 07:01] LABS: ABSOLUTE NEUTROPHIL CT (ANC) 1.3 K/uL (1.4-9.0); BANDED NEUTROPHIL # 0.3 K/uL (0.0-0.1); BANDED NEUTROPHILS % 16 %; LYMPHOCYTE # 0.3 K/uL (0.8-4.0); LYMPHOCYTE % 16 %; MONOCYTE # 0.4 K/uL (0.0-1.0); SEGMENTED NEUTROPHIL % 45 %
[2017-04-16 05:49] LABS: ANION GAP 11.9 (10.0-19.0); BLOOD UREA NITROGEN 13 mg/dL (6-24); CALCIUM 7.9 mg/dL (8.5-10.5); CHLORIDE 100 mMol/L (96-110); CO2 29 mMol/L (22-32); CREATININE 0.7 mg/dL (0.6-1.3); ESTIMATED GFR (MDRD EQUATION) > 60; POTASSIUM 3.9 mMol/L (3.7-5.1); SODIUM 137 mMol/L (135-145)
[2017-04-16 05:58] LABS: HEMATOCRIT 23.3 % (37.0-53.0); MCH 29.3 pg (27.0-34.0); MCV 88.6 fl (83.0-98.0); PLATELET COUNT 318 K/uL (150-450); RBC 2.63 M/uL (3.50-5.50); WBC 2.8 K/uL (4.0-11.0)
[2017-04-16 06:02] LABS: HEMOGLOBIN 7.7 g/dL (11.0-16.0)
[2017-04-16 07:00] LABS: ABSOLUTE NEUTROPHIL CT (ANC) 2.3 K/uL (1.4-9.0); BANDED NEUTROPHIL # 0.6 K/uL (0.0-0.1); BANDED NEUTROPHILS % 20 %; LYMPHOCYTE # 0.1 K/uL (0.8-4.0); LYMPHOCYTE % 3 %; MONOCYTE # 0.3 K/uL (0.0-1.0); SEGMENTED NEUTROPHIL # 1.7 K/uL (1.4-9.0); SEGMENTED NEUTROPHIL % 61 %
[2017-04-17 05:38] LABS: ALBUMIN 2.6 gm/dL (3.5-5.0); ANION GAP 7.2 (10.0-19.0); CALCIUM 8.1 mg/dL (8.5-10.5); CHLORIDE 99 mMol/L (96-110); CO2 33 mMol/L (22-32); ESTIMATED GFR (MDRD EQUATION) > 60; MAGNESIUM 1.8 mg/dL (1.8-2.6); PHOSPHORUS 3.7 mg/dL (2.5-4.9); POTASSIUM 4.2 mMol/L (3.7-5.1); SODIUM 135 mMol/L (135-145)
[2017-04-17 05:39] LABS: BLOOD UREA NITROGEN 21 mg/dL (6-24)
[2017-04-17 06:16] LABS: HEMOGLOBIN 9.8 g/dL (11.0-16.0); MCHC 33.4 gm/dL (32.0-36.5); MCV 86.9 fl (83.0-98.0); MPV 8.8 fl (9.4-12.4); PLATELET COUNT 337 K/uL (150-450); RDW-CV 13.2 % (11.9-14.6); WBC 2.6 K/uL (4.0-11.0)
[2017-04-17 06:18] LABS: HEMATOCRIT 29.3 % (37.0-53.0); MCH 29.1 pg (27.0-34.0); RBC 3.37 M/uL (3.50-5.50)
[2017-04-17 06:58] LABS: ABSOLUTE NEUTROPHIL CT (ANC) 2.1 K/uL (1.4-9.0); BANDED NEUTROPHIL # 0.1 K/uL (0.0-0.1); BANDED NEUTROPHILS % 2 %; LYMPHOCYTE # 0.2 K/uL (0.8-4.0); LYMPHOCYTE % 7 %; MONOCYTE # 0.4 K/uL (0.0-1.0); SEGMENTED NEUTROPHIL % 77 %
[2017-04-18 09:37] LABS: HEMOGLOBIN 10.7 g/dL (11.0-16.0); MCH 29.2 pg (27.0-34.0); MCHC 33.4 gm/dL (32.0-36.5); MCV 87.2 fl (83.0-98.0); MPV 8.9 fl (9.4-12.4); PLATELET COUNT 329 K/uL (150-450); RBC 3.67 M/uL (3.50-5.50); WBC 4.2 K/uL (4.0-11.0)
[2017-04-18 10:13] LABS: ABSOLUTE NEUTROPHIL CT (ANC) 3.4 K/uL (1.4-9.0); BANDED NEUTROPHIL # 0.5 K/uL (0.0-0.1); BANDED NEUTROPHILS % 11 %; LYMPHOCYTE # 0.2 K/uL (0.8-4.0); LYMPHOCYTE % 4 %; MONOCYTE # 0.6 K/uL (0.0-1.0); SEGMENTED NEUTROPHIL # 2.9 K/uL (1.4-9.0); SEGMENTED NEUTROPHIL % 69 %
[2017-04-19 07:02] LABS: HEMATOCRIT 30.3 % (37.0-53.0); HEMOGLOBIN 10.2 g/dL (11.0-16.0); MCH 29.4 pg (27.0-34.0); MCHC 33.7 gm/dL (32.0-36.5); MCV 87.3 fl (83.0-98.0); MPV 8.7 fl (9.4-12.4); PLATELET COUNT 267 K/uL (150-450); RBC 3.47 M/uL (3.50-5.50); RDW-CV 12.9 % (11.9-14.6); WBC 4.9 K/uL (4.0-11.0)
[2017-04-19 07:37] LABS: ABSOLUTE NEUTROPHIL CT (ANC) 4.2 K/uL (1.4-9.0); BANDED NEUTROPHIL # 0.4 K/uL (0.0-0.1); BANDED NEUTROPHILS % 8 %; LYMPHOCYTE # 0.5 K/uL (0.8-4.0); LYMPHOCYTE % 10 %; MONOCYTE # 0.2 K/uL (0.0-1.0); SEGMENTED NEUTROPHIL # 3.8 K/uL (1.4-9.0); SEGMENTED NEUTROPHIL % 77 %
[2017-04-20 06:26] LABS: ALBUMIN 2.7 gm/dL (3.5-5.0); CALCIUM 8.6 mg/dL (8.5-10.5); CREATININE 1.2 mg/dL (0.6-1.3); PHOSPHORUS 5.6 mg/dL (2.5-4.9)
[2017-04-20 09:12] LABS: HEMATOCRIT 32.3 % (37.0-53.0); HEMOGLOBIN 10.9 g/dL (11.0-16.0); MCH 29.1 pg (27.0-34.0); MCHC 33.7 gm/dL (32.0-36.5); MCV 86.4 fl (83.0-98.0); MPV 8.5 fl (9.4-12.4); PLATELET COUNT 272 K/uL (150-450); RBC 3.74 M/uL (3.50-5.50); RDW-CV 12.7 % (11.9-14.6); WBC 2.9 K/uL (4.0-11.0)
[2017-04-20 09:56] LABS: ABSOLUTE NEUTROPHIL CT (ANC) 2.2 K/uL (1.4-9.0); BANDED NEUTROPHIL # 0.1 K/uL (0.0-0.1); BANDED NEUTROPHILS % 2 %; LYMPHOCYTE # 0.2 K/uL (0.8-4.0); LYMPHOCYTE % 7 %; MONOCYTE # 0.5 K/uL (0.0-1.0); SEGMENTED NEUTROPHIL # 2.2 K/uL (1.4-9.0); SEGMENTED NEUTROPHIL % 75 %
[2017-04-21 05:37] LABS: HEMATOCRIT 34.3 % (37.0-53.0); HEMOGLOBIN 11.6 g/dL (11.0-16.0); MCH 29.2 pg (27.0-34.0); MCHC 33.8 gm/dL (32.0-36.5); MCV 86.4 fl (83.0-98.0); MPV 8.8 fl (9.4-12.4); PLATELET COUNT 288 K/uL (150-450); RBC 3.97 M/uL (3.50-5.50); RDW-CV 12.9 % (11.9-14.6); WBC 4.2 K/uL (4.0-11.0)
[2017-04-21 06:49] LABS: ABSOLUTE NEUTROPHIL CT (ANC) 3.7 K/uL (1.4-9.0); BANDED NEUTROPHIL # 0.4 K/uL (0.0-0.1); BANDED NEUTROPHILS % 10 %; LYMPHOCYTE # 0.2 K/uL (0.8-4.0); LYMPHOCYTE % 4 %; MONOCYTE # 0.3 K/uL (0.0-1.0); SEGMENTED NEUTROPHIL # 3.3 K/uL (1.4-9.0); SEGMENTED NEUTROPHIL % 78 %
[2017-04-22 06:13] LABS: ALBUMIN 2.6 gm/dL (3.5-5.0); ANION GAP 12.1 (10.0-19.0); CALCIUM 8.2 mg/dL (8.5-10.5); CREATININE 1.2 mg/dL (0.6-1.3); POTASSIUM 3.1 mMol/L (3.7-5.1)
[2017-04-22 07:01] LABS: HEMATOCRIT 29.2 % (37.0-53.0); HEMOGLOBIN 9.8 g/dL (11.0-16.0); MCH 29.1 pg (27.0-34.0); MCHC 33.6 gm/dL (32.0-36.5); MCV 86.6 fl (83.0-98.0); MPV 9.2 fl (9.4-12.4); RBC 3.37 M/uL (3.50-5.50); RDW-CV 12.8 % (11.9-14.6); WBC 3.7 K/uL (4.0-11.0)
[2017-04-22 07:09] LABS: PLATELET COUNT 198 K/uL (150-450)
[2017-04-22 07:48] LABS: ABSOLUTE NEUTROPHIL CT (ANC) 3.2 K/uL (1.4-9.0); LYMPHOCYTE # 0.1 K/uL (0.8-4.0); LYMPHOCYTE % 4 %; MONOCYTE # 0.4 K/uL (0.0-1.0); SEGMENTED NEUTROPHIL # 3.2 K/uL (1.4-9.0); SEGMENTED NEUTROPHIL % 85 %
[2017-04-23 05:35] LABS: ALBUMIN 2.6 gm/dL (3.5-5.0); BLOOD UREA NITROGEN 22 mg/dL (6-24); CALCIUM 8.5 mg/dL (8.5-10.5); CHLORIDE 99 mMol/L (96-110); CO2 31 mMol/L (22-32); ESTIMATED GFR (MDRD EQUATION) > 60; MAGNESIUM 1.9 mg/dL (1.8-2.6); PHOSPHORUS 2.8 mg/dL (2.5-4.9); SODIUM 137 mMol/L (135-145)
[2017-04-24 06:34] LABS: ALBUMIN 2.5 gm/dL (3.5-5.0); ANION GAP 10.3 (10.0-19.0); BLOOD UREA NITROGEN 18 mg/dL (6-24); CALCIUM 8.3 mg/dL (8.5-10.5); CHLORIDE 101 mMol/L (96-110); CO2 28 mMol/L (22-32); MAGNESIUM 1.8 mg/dL (1.8-2.6); PHOSPHORUS 2.9 mg/dL (2.5-4.9); POTASSIUM 3.3 mMol/L (3.7-5.1); SODIUM 136 mMol/L (135-145)
[2017-04-24 06:36] LABS: CREATININE 0.8 mg/dL (0.6-1.3); ESTIMATED GFR (MDRD EQUATION) > 60
[2017-04-24 12:21] LABS: HEMATOCRIT 30.4 % (37.0-53.0); HEMOGLOBIN 10.2 g/dL (11.0-16.0); MCH 29.2 pg (27.0-34.0); MCHC 33.6 gm/dL (32.0-36.5); MCV 87.1 fl (83.0-98.0); MPV 9.2 fl (9.4-12.4); PLATELET COUNT 129 K/uL (150-450); RBC 3.49 M/uL (3.50-5.50); RDW-CV 12.9 % (11.9-14.6); WBC 3.7 K/uL (4.0-11.0)
[2017-04-24 12:58] LABS: ABSOLUTE NEUTROPHIL CT (ANC) 3.3 K/uL (1.4-9.0); BANDED NEUTROPHIL # 0.4 K/uL (0.0-0.1); BANDED NEUTROPHILS % 11 %; LYMPHOCYTE # 0.1 K/uL (0.8-4.0); LYMPHOCYTE % 4 %; MONOCYTE # 0.3 K/uL (0.0-1.0); SEGMENTED NEUTROPHIL # 2.9 K/uL (1.4-9.0); SEGMENTED NEUTROPHIL % 77 %
[2017-04-26 06:15] LABS: BLOOD UREA NITROGEN 17 mg/dL (6-24); CHLORIDE 109 mMol/L (96-110); CO2 24 mMol/L (22-32); CREATININE 0.5 mg/dL (0.6-1.3); ESTIMATED GFR (MDRD EQUATION) > 60; MAGNESIUM 1.4 mg/dL (1.8-2.6); SODIUM 142 mMol/L (135-145)
[2017-04-26 06:22] LABS: ANION GAP 11.7 (10.0-19.0); CALCIUM 6.8 mg/dL (8.5-10.5); POTASSIUM 2.7 mMol/L (3.7-5.1)
[2017-04-26 19:35] LABS: ANION GAP 9.1 (10.0-19.0)
[2017-04-26 19:36] LABS: POTASSIUM 4.1 mMol/L (3.7-5.1)
[2017-04-27 06:01] LABS: ALBUMIN 2.4 gm/dL (3.5-5.0); ANION GAP 10.6 (10.0-19.0); BLOOD UREA NITROGEN 21 mg/dL (6-24); CALCIUM 8.2 mg/dL (8.5-10.5); CHLORIDE 102 mMol/L (96-110); CO2 28 mMol/L (22-32); CREATININE 0.7 mg/dL (0.6-1.3); ESTIMATED GFR (MDRD EQUATION) > 60; MAGNESIUM 1.8 mg/dL (1.8-2.6); PHOSPHORUS 3.1 mg/dL (2.5-4.9); POTASSIUM 3.6 mMol/L (3.7-5.1); SODIUM 137 mMol/L (135-145)
[2017-04-27] MEDS ORDERED: DURAGESIC 25MC25 MCG TOP (14:58)
[2017-04-27] MEDS ORDERED: MAG119MX PO (15:01)
[2017-04-27 15:12] LABS: HEMATOCRIT 27.7 % (37.0-53.0); HEMOGLOBIN 9.3 g/dL (11.0-16.0); MCH 29.1 pg (27.0-34.0); MCHC 33.6 gm/dL (32.0-36.5); MCV 86.6 fl (83.0-98.0); MPV 8.9 fl (9.4-12.4); PLATELET COUNT 121 K/uL (150-450); RDW-CV 12.8 % (11.9-14.6); WBC 2.8 K/uL (4.0-11.0)
[2017-04-27 20:06] LABS: ABSOLUTE NEUTROPHIL CT (ANC) 2.3 K/uL (1.4-9.0); BANDED NEUTROPHIL # 0.5 K/uL (0.0-0.1); BANDED NEUTROPHILS % 19 %; LYMPHOCYTE # 0.1 K/uL (0.8-4.0); LYMPHOCYTE % 4 %; MONOCYTE # 0.3 K/uL (0.0-1.0); SEGMENTED NEUTROPHIL # 1.8 K/uL (1.4-9.0); SEGMENTED NEUTROPHIL % 64 %
== END 2017-04-27 16:10 | disposition disaster alternative care site (69) | DRG 388 ==
LOC: GMED 19:25 → GMSU 21:42
PROVIDERS: Family Medicine; Internal Medicine; Internal Medicine Hematology & Oncology; Physician Assistant; ADMIT Internal Medicine
DX: K56.0 Paralytic ileus (principal); D61.810 Antineoplastic chemotherapy induced pancytopenia; E44.0 Moderate protein-calorie malnutrition; D70.9 Neutropenia, unspecified; Z93.1 Gastrostomy status; R13.10 Dysphagia, unspecified; E83.42 Hypomagnesemia; C10.9 Malignant neoplasm of oropharynx, unspecified; E87.6 Hypokalemia; K12.1 Other forms of stomatitis; K59.00 Constipation, unspecified; C02.9 Malignant neoplasm of tongue, unspecified; J44.9 Chronic obstructive pulmonary disease, unspecified; T45.1X5A Adverse effect of antineoplastic and immunosuppressive drugs, initial encounter
CPT/HCPCS: C9113; G0378; J0610; J0780; J1100; J1453; J1650; J2270; J2405; J2469; J2765; J2997; J3475; J3480; J7030; J7040; J7042; J7050; J9060

== ENCOUNTER → 2017-07-10 | Outpatient (CLI) | payer MEDICARE, BC ==
[~2017-07-10] MED LIST changes: +DURAGESIC 25MC25 MCG TOP; +MAG119MX PO; +MOTRIN/ADV100 MG/5 M PO; +TYLENOL LI325 MG/10. PO; +ZOFRAN ODT 4 MG4 MG SL
== END ==
LOC: GRAD 07-09 11:30
DX: R13.10 Dysphagia, unspecified (principal); Z85.89 Personal history of malignant neoplasm of other organs and systems; Z92.21 Personal history of antineoplastic chemotherapy; Z92.3 Personal history of irradiation
CPT/HCPCS: G8996; G8997; G8998

== ENCOUNTER → 2017-07-16 | Outpatient (CLI) | payer MEDICARE, BC | END | disposition disaster alternative care site (69) | LOC: GRAD 13:04 | PROC: 0D20XUZ Change Feeding Device in Upper Intestinal Tract, External Approach (ICD-10-PCS; principal; 2017-07-16) | DX: Z43.1 Encounter for attention to gastrostomy (principal); C10.9 Malignant neoplasm of oropharynx, unspecified | CPT/HCPCS: C1769; J1644 ==

== ENCOUNTER 2017-07-30 00:01 | Emergency (ER) | payer MEDICARE, BC ==
--- NOTE | ~2017-07-30 | ER ---
PATIENT'S NAME: EHSAN ELI [facility] AGE: 67 Y [address] ROOM: [place] [address] LOCATION: ED ADMIT DATE: 07/30/2017 ER/Outpatient Report DISCHARGE DATE: 07/30/2017 FAMILY PHYSICIAN: PHYSICIAN, NO ATTENDING PHYSICIAN: Yunier Black Time of Arrival: 0006 hours. Time of Evaluation: 0006 hours. CHIEF COMPLAINT: PEG tube fell out. HISTORY OF PRESENT ILLNESS: The patient is a 67-year-old male, who presents to the emergency department today with a chief complaint of PEG tube fell out. He reports it occurred about 45 minutes prior to arrival. The balloon popped and it fell out. He has not had any other issues. No fevers or chills. No nausea or vomiting. No diarrhea or constipation. No other complications. PAST MEDICAL HISTORY: Throat cancer, mass at the base of the tongue. PAST SURGICAL HISTORY: PEG tube, abdomen, 4 years' old. SOCIAL HISTORY: The patient denies any tobacco, alcohol, or illicit drug use. ALLERGIES: NO KNOWN DRUG ALLERGIES. MEDICATIONS: Please see list. PRIMARY CARE DOCTOR: Dr. Lam. REVIEW OF SYSTEMS: All systems are reviewed by myself and are negative with the exception of those discussed in the HPI and past medical history. PHYSICAL EXAMINATION: VITAL SIGNS: Weight 86.4 kg, blood pressure 133/83, pulse 71, respiratory rate 16, temperature 98.4, oxygen saturation 96% on room air. GENERAL: The patient is a 67-year-old male, who appears stated age, in no PATIENT'S NAME: EHSAN ELI [facility] AGE: 67 Y [address] ROOM: [place] [address] LOCATION: [facility] ADMIT DATE: 07/30/2017 ER/Outpatient Report DISCHARGE DATE: 07/30/2017 FAMILY PHYSICIAN: PHYSICIAN, NO ATTENDING PHYSICIAN: Yunier Black acute distress at this time. HEENT: Head: Normocephalic, atraumatic. NECK: Supple. No nuchal rigidity. CARDIOVASCULAR: Regular rate and rhythm. No murmurs, rubs, or gallops. LUNGS: Clear to auscultation bilaterally. No wheezes, rales, or rhonchi. ABDOMEN: G-tube stoma in place. There is no erythema. There are no masses. No tenderness to palpation. No rebound, rigidity, or guarding. Positive bowel sounds. MUSCULOSKELETAL: The patient moves all 4 extremities. SKIN: Warm and dry. There are no rashes or lesions noted. LABORATORY DATA AND X-RAYS: None. IMPRESSION: 1. Gastrostomy tube dysfunction with replacement. 2. Initial visit. EMERGENCY DEPARTMENT COURSE: The patient was brought back to the examination room. Seen and evaluated by myself. The patient does have a 14-Spanish gastrostomy tube in place. We have contacted Dr. Bains in Endoscopy. Apparently, 14-Spanish gastrostomy tubes require a special order. We have placed a 14-Spanish Lynch to keep the stoma open. Dr. Bains will order a new 14-Spanish gastrostomy tube and notify the patient when it is in for placement. I have discussed following up with Dr. Lam in 2 to 3 days. I have discussed return to care instructions including any worsening symptoms or any other concerns to return to the emergency department as soon as possible. The patient is agreeable without further questions at this time. DISPOSITION: The patient discharged home in good condition. DO ANKIT MCKEON/ramon /[id number] d: 07/30/173 t: 07/31/17 0600, OUTPATIENT REPORT
== END 2017-07-30 00:40 | disposition disaster alternative care site (69) ==
LOC: GMED 00:01
PROC: 0T2BX0Z Change Drainage Device in Bladder, External Approach (ICD-10-PCS; principal; 2017-07-30)
DX: K94.23 Gastrostomy malfunction (principal); C14.0 Malignant neoplasm of pharynx, unspecified

== ENCOUNTER → 2017-07-30 | Outpatient (CLI) | payer MEDICARE, BC | END | disposition disaster alternative care site (69) | LOC: GRAD 14:30 | PROC: 0DH63UZ Insertion of Feeding Device into Stomach, Percutaneous Approach (ICD-10-PCS; principal; 2017-07-30) | DX: Z43.1 Encounter for attention to gastrostomy (principal); C10.9 Malignant neoplasm of oropharynx, unspecified | CPT/HCPCS: J7030 ==